=== PATIENT | female | born 1945 | race Caucasian/White ===

== ENCOUNTER → 2018-11-13 | Outpatient (CLI) | payer OTHER ==
[~2018-11-13] MED LIST: IOPAMIDOL (ISOVUE-300) 100 ML BTL ONE
== END ==
LOC: FIMAGING 08:23
PROVIDERS: ATTEND Surgery
DX: K57.32 Diverticulitis of large intestine without perforation or abscess without bleeding (principal); N20.0 Calculus of kidney
CPT/HCPCS: 74177; Q9967

== ENCOUNTER 2018-11-21 03:42 | Emergency (ER) | payer OTHER ==
--- NOTE | 2018-11-21 04:24 | EDPHY ---
H & P Stated Complaint: C-diff x1 year, abd cramping, cramping all over Time Seen by Provider: 11/21/18 03:49 HPI/ROS: Chief Complaint: Abdominal pain, HPI: 73-year-old woman with a history of recurrent C difficile colitis and diverticulitis is presenting with abdominal cramping in general malaise for the last 2 weeks. Patient has had extensive medical history for the last year. Symptoms began after she had a ventral hernia repair. She developed C difficile shortly after procedure. She has had several bouts and has been on vancomycin intermittently. She has also has a history of diverticulitis although she is hesitant to take antibiotics because it caused him to have a flare of her C difficile. 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 She has since discussed with Dr. Tejada, gastroenterology. She had a CT scan done 8 days ago has not yet heard the results. She is presenting this morning with increasing abdominal cramping. At worst about a 4/10. She is concerned that she might be having a complication or diverticulitis. No fevers or chills. No nausea or vomiting. No melena. He she has had some constipation. Past follow-up with stool sample which she has brought with her today. ROS: 10 systems were reviewed and were negative except those elements noted in the HPI. PMH: C difficile colitis, diverticulitis Social History: No smoking, no alcohol, no recreational drug use Family History: non-contributory Physical Exam: Gen: Awake, Alert, No Distress HEENT: Nose: no rhinorrhea Eyes: PERRLA, EOMI Mouth: Moist mucosa Neck: Supple, no JVD Chest: nontender, lungs clear to auscultation Heart: S1, S2 normal, no murmur Abd: Soft, mild generalized tendernes in the lower abdomen, no guarding Back: no CVA tenderness, no midline tenderness Ext: no edema, non-tender Skin: no rash Neuro: CN II-XII intact, Sensation grossly intact, Strength 5/5 in bilateral upper and lower extremities - Personal History Current Tetanus Diphtheria and Acellular Pertussis (TDAP): Yes - Medical/Surgical History Hx Asthma: No Hx Chronic Respiratory Disease: No Hx Diabetes: No Hx Cardiac Disease: No Hx Renal Disease: No Hx Cirrhosis: No Hx Alcoholism: No Hx HIV/AIDS: No Hx Splenectomy or Spleen Trauma: No Other PMH: C-diff - Social History Smoking Status: Never smoked Constitutional: Initial Vital Signs Temperature (C) 36.4 C 11/21/18 03:46 Heart Rate 78 11/21/18 03:46 Respiratory Rate 16 11/21/18 03:46 Blood Pressure 175/99 H 11/21/18 03:46 O2 Sat (%) 96 11/21/18 03:46 O2 Delivery Mode Room Air Allergies/Adverse Reactions: No Known Allergies Allergy (Unverified 11/21/18 03:48) Home Medications: Medication Instructions Recorded Vancomycin 11/21/18 Medical Decision Making ED Course/Re-evaluation: 73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 Had a CT scan a week ago suggestive of mild diverticulitis. She was not aware of these results. She is requesting CBC at this time. If that is normal she would prefer to follow up with her briquette machine operator and not start antibiotics. I think this is appropriate. Patient is obviously very educated aware of the ramifications. CBC and chemistry are normal. Abdomen is nonsurgical. I have discussed further at length with the patient. She is agree with the plan to discharge to home with follow-up with GI. She will return for any concerns. - Data Points Laboratory Results: Laboratory Results 11/21/18 04:30 11/21/18 04:30 11/21/18 11/21/18 04:30 04:30 WBC 5.82 10^3/uL 10^3/uL (3.80-9.50) RBC 4.99 10^6/uL 10^6/uL (4.18-5.33) Hgb 14.4 g/dL g/dL (12.6-16.3) Hct 43.8 % % (38.0-47.0) MCV 87.8 fL fL (81.5-99.8) MCH 28.9 pg pg (27.9-34.1) MCHC 32.9 g/dL g/dL (32.4-36.7) RDW 13.8 % % (11.5-15.2) Plt Count 214 10^3/uL 10^3/uL (150-400) MPV 10.5 fL fL (8.7-11.7) Neut % (Auto) 57.1 % % (39.3-74.2) Lymph % (Auto) 35.1 % % (15.0-45.0) Glynn % (Auto) 6.5 % % (4.5-13.0) Eos % (Auto) 0.7 % % (0.6-7.6) Baso % (Auto) 0.3 % % (0.3-1.7) Nucleat RBC Rel Count 0.0 % % (0.0-0.2) Absolute Neuts (auto) 3.32 10^3/uL 10^3/uL (1.70-6.50) Absolute Lymphs (auto) 2.04 10^3/uL 10^3/uL (1.00-3.00) Absolute Monos (auto) 0.38 10^3/uL 10^3/uL (0.30-0.80) Absolute Eos (auto) 0.04 10^3/uL 10^3/uL (0.03-0.40) Absolute Basos (auto) 0.02 10^3/uL 10^3/uL (0.02-0.10) Absolute Nucleated RBC 0.00 10^3/uL 10^3/uL (0-0.01) Immature Gran % 0.3 % % (0.0-1.1) Immature Gran # 0.02 10^3/uL 10^3/uL (0.00-0.10) Sodium 140 mEq/L mEq/L (135-145) Potassium 4.3 mEq/L mEq/L (3.5-5.2) Chloride 109 mEq/L mEq/L (97-110) Carbon Dioxide 23 mEq/l mEq/l (22-31) Anion Gap 8 mEq/L mEq/L (6-14) BUN 17 mg/dL mg/dL (7-23) Creatinine 0.6 mg/dL mg/dL (0.6-1.0) Estimated GFR > 60 Glucose 99 mg/dL mg/dL (70-100) Calcium 9.0 mg/dL mg/dL (8.5-10.4) Medications Given: Discontinued Medications Sodium Chloride (Ns) 1,000 mls @ 0 mls/hr IV ONCE ONE; Wide Open PRN Reason: Protocol Stop: 11/21/18 04:27 Last Admin: 11/21/18 04:30 Dose: 1,000 mls Departure - Departure Disposition: Home, Routine, Self-Care Clinical Impression: Abdominal pain Condition: Good Instructions: Abdominal Pain (ED) Additional Instructions: Follow up with gastroenteritis in 2-3 days for further evaluation. Return the emergency department for worsening abdominal pain, fevers or chills, uncontrolled nausea, vomiting, or diarrhea, or any other concerns. Referrals: Alfonso Serna MD, FACG [Medical Doctor] - As per Instructions
[2018-11-21] MEDS ORDERED: NS 1,000 ML IV ONE (04:26)
[2018-11-21 04:41] LABS: PLATELET COUNT 214 10^3/uL (150-400)
[2018-11-21 05:26] VITALS: BP 155/112
== END 2018-11-21 05:28 | disposition home or self-care (01) ==
DX: R10.84 Generalized abdominal pain (principal); A04.72 Enterocolitis due to Clostridium difficile, not specified as recurrent; K57.32 Diverticulitis of large intestine without perforation or abscess without bleeding; E86.9 Volume depletion, unspecified